=== PATIENT | male | born 1985 | race Two or more races ===

== ENCOUNTER 2018-08-23 16:49 | Emergency (ER) | payer MEDICAID ==
[~2018-08-23] VITALS: Ht 172.7 cm; Wt 77.1 kg
--- NOTE | 2018-08-23 16:57 | NUR ---
ED Nurse Note: PT REPORTS THAT HE HAS NOT REPORTED TO [employer]. INFORMED PRIMARY NURSE, DEEP ANDREA.
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
[2018-08-23 17:08] VITALS: BP 121/86
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
[2018-08-23] MEDS ORDERED: Norco 5mg/325mg tab ONE (18:24)
[2018-08-23] MEDS ORDERED: Norco 5mg/325mg tab ORAL ONE (18:30)
[2018-08-23] MEDS ORDERED: ACETAMINOPHEN-1 EAC1 ORAL (18:42)
[2018-08-23] MEDS ORDERED: IBUPROFEN600 MG ORAL (18:42)
[2018-08-23 18:52] VITALS: BP 121/86
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
--- NOTE | 2018-08-24 13:15 | Diagnostic Imaging Report ---
Indication: Pain Findings: 3 views of the left elbow were obtained. Acute intra-articular fracture of the radial head demonstrated. Joint effusion noted. No malalignment identified. IMPRESSION: Acute radial head fracture
== END 2018-08-23 18:54 | disposition home or self-care (01) ==
LOC: EMR 18:18 → EDBD 18:18 → EMR 18:54
DX: S52.125A Nondisplaced fracture of head of left radius, initial encounter for closed fracture (principal); V13.4XXA Pedal cycle driver injured in collision with car, pick-up truck or van in traffic accident, initial encounter; Y93.55 Activity, bike riding; Y92.410 Unspecified street and highway as the place of occurrence of the external cause
CPT/HCPCS: 29105; 99283